=== PATIENT | female | born 1945 | race Caucasian/White ===

== ENCOUNTER 2020-11-30 10:21 | Day surgery (SDC) | payer MEDICARE, OTHER ==
[~2020-11-30] VITALS: Ht 162.6 cm; Wt 65.5 kg
[~2020-11-30 10:21] MED LIST: ESTRACE0.5 MG PO; MOTRIN 800800 MG/TAB PO; NORCO 325 MG-51 TAB PO; ZESTRIL 5MG5 MG PO
[2020-11-30 11:22] VITALS: BP 108/56; PULSE 68; TEMP 98.1
[2020-11-30] MEDS ORDERED: VYTORIN 10 MG-11 TAB PO (11:29)
[2020-11-30] MEDS ORDERED: BUSPAR5 MG PO (11:30)
[2020-11-30] MEDS ORDERED: KEPPRA250 MG PO (11:30)
[2020-11-30] MEDS ORDERED: NEURONTIN100 MG/CAP PO (11:31)
[2020-11-30] MEDS ORDERED: DESYREL 100MG100 MG PO (11:31)
[2020-11-30] MEDS ORDERED: OMNICEF 300MG300 MG PO (11:32)
[2020-11-30] MEDS ORDERED: VALIUM 2MG T2 MG/TAB PO (11:32)
[2020-11-30] MEDS ORDERED: FOSAMAX 10M10 MG/TAB PO (11:32)
[2020-11-30 15:00] VITALS: BP 100/54; PULSE 58; TEMP 98.2
--- NOTE | 2020-11-30 15:00 | NUR ---
PATIENT BROUGHT BACK TO [facility] VIA CART. PLACED ON MONITORS, VITAL SIGNS STABLE. PATIENT COMPLAINS OF MILD AMOUNT OF NAUSEA. STATES SHE JUST WANTS WATER AT THIS TIME. AT BEDSIDE. WILL CONTINUE TO MONITOR. 1515- PATIENT RESTING COMFORTABLE AT THIS TIME. TOLERATED WATER WITHOUT DIFFICULTY. 1530- PATIENT STATES SHE WOULD LIKE SOME JELLO AT THIS TIME. TOLERATING WELL. 1404- PATIENT AMBULATED TO BATHROOM WITHOUT DIFFICULTY. ABLE TO URINATE. NO COMPLAINTS. IV REMOVED, PATIENT TO GET DRESSED AT THIS TIME. 1415- DISCHARGE INSTRUCTIONS REVIEWED WITH PATIENT AND . ALL QUESTIONS ANSWERED. 1420- PATIENT BROUGHT DOWN TO LOBBY VIA WHEEL CHAIR. TO DRIVE PATIENT HOME. ALL BELONGINGS IN HAND.
[2020-11-30 15:15] VITALS: BP 99/55; PULSE 58
[2020-11-30 15:30] VITALS: BP 102/57; PULSE 71
[2020-11-30 15:45] VITALS: BP 102/61; PULSE 62
[2020-11-30 17:28] VITALS: BP 105/63; PULSE 65; TEMP 98.1
== END 2020-11-30 16:15 | disposition home or self-care (01) ==
LOC: SDCO 10:21
DX: N20.2 Calculus of kidney with calculus of ureter (principal); N39.0 Urinary tract infection, site not specified; I10 Essential (primary) hypertension; E78.5 Hyperlipidemia, unspecified; M19.90 Unspecified osteoarthritis, unspecified site; G40.909 Epilepsy, unspecified, not intractable, without status epilepticus; G62.9 Polyneuropathy, unspecified; F32.9 Major depressive disorder, single episode, unspecified; F41.9 Anxiety disorder, unspecified; Z79.899 Other long term (current) drug therapy
CPT/HCPCS: C1769; J0690; J1885; J2405; J2704; J3010; J7120; Q9967